=== PATIENT | male | born 1930 | race Caucasian/White ===

== ENCOUNTER 2017-04-19 11:51 | Inpatient (IN) | payer MEDICARE ==
[~2017-04-19] VITALS: Ht 180.3 cm; Wt 68.0 kg
--- NOTE | 2017-04-19 12:00 | NUR ---
sav from [employer]-- sdt syncopa episode. Pt is aao4. Unable to remember if he has syncopal episode. Pt appears in no apparent distress. Respiration even and unlabored. skin is warm to touch and non diaphoretic. afebrile. vss
--- NOTE | 2017-04-19 12:32 | NUR ---
ray at bedside
[2017-04-19 12:40] LABS: BASOPHILS % (AUTO) 0.7 % (0.0-2.0); EOSINOPHILS # (AUTO) 0.2 /CMM (0.0-0.7); EOSINOPHILS % (AUTO) 3.7 % (0.0-6.0); HEMATOCRIT 32 % (39-51); HEMOGLOBIN 10.5 g/dL (13.5-17.5); LYMPHOCYTES # (AUTO) 1.1 /CMM (0.8-4.8); LYMPHOCYTES % (AUTO) 16.4 % (20.0-44.0); MEAN CORPUSCULAR HEMOGLOBIN 30 PG (26.0-33.0); MEAN CORPUSCULAR HGB CONC 33 g/dl (31.0-36.0); MEAN CORPUSCULAR VOLUME 90 fL (80-96); MONOCYTES # (AUTO) 0.5 /CMM (0.1-1.30); MONOCYTES % (AUTO) 7.1 % (2.0-12.0); NEUTROPHILS # (AUTO) 4.7 /CMM (1.8-8.9); NEUTROPHILS % (AUTO) 72.1 % (43.0-81.0); PLATELET COUNT (AUTO) 147 /CMM (150-450); RDW COEFFICIENT OF VARIATION 13.8 (11.5-15.0); RED BLOOD CELL COUNT(AUTO) 3.53 MIL/uL (4.5-6.0); WHITE BLOOD COUNT (AUTO) 6.5 K/uL (4.3-11.0)
[2017-04-19 12:54] LABS: ALANINE AMINOTRANSFERASE 8 U/L (12-78); ALBUMIN 2.2 g/dL (3.4-5.0); ALKALINE PHOSPHATASE 57 U/L (46-116); ASPARTATE AMINOTRANSFERASE 15 U/L (15-37); BILIRUBIN,DIRECT 0.2 mg/dL (0.0-0.2); BILIRUBIN,TOTAL 0.6 mg/dL (0.2-1.0); CALCIUM, SERUM 6.2 mg/dL (8.5-10.1); CARBON DIOXIDE 22 mmol/L (21-32); CHLORIDE 117 mmol/L (98-107); GLUCOSE 78 mg/dL (74-106); SODIUM SERUM 147 mmol/L (136-145); TOTAL PROTEIN, SERUM 4.1 g/dL (6.4-8.2); UREA NITROGEN, BLOOD 9 mg/dL (7-18)
[2017-04-19 12:56] LABS: POTASSIUM 2.6 mmol/L (3.5-5.1); TROPONIN I < 0.017 ng/mL (0.00-0.056)
[2017-04-19 13:00] LABS: INR 1.21 (0.87-1.13); PROTHROMBIN TIME 12.7 SECS (9.5-12.7)
[2017-04-19] MEDS ORDERED: POTASSIUM CHLORIDE 20 MEQ TAB.PRT.SR PO ONE ×3 (13:00→13:17)
[2017-04-19] MEDS ORDERED: POTASSIUM CL. PREMIX PERIPHER. 100 ML ONE (13:06)
[2017-04-19] MEDS: POTASSIUM CL. PREMIX PERIPHER. 50 ML IV SCH ×6 (13:17→22:14)
--- NOTE | 2017-04-19 16:23 | NUR ---
REPORT GIVEN TO CAMILLE WEINBERG
--- NOTE | 2017-04-19 16:23 | NUR ---
PATIENT TRANSPORTED TO [address] [place] [address]
[2017-04-19] MEDS ORDERED: AMLO5TAB2 PO (16:34)
[2017-04-19] MEDS ORDERED: IV NS 0.9% 1,000 ML IV PRN (16:38)
[2017-04-19 17:00] VITALS: BP 130/60
[2017-04-19] MEDS ORDERED: ONDANSETRON HCL/PF 4 MG/2 ML VIAL IVP PRN (17:00)
[2017-04-19] MEDS ORDERED: ENOXAPARIN SODIUM 40 MG/0.4 ML DISP.SYRIN SQ SCH (17:00)
[2017-04-19] MEDS ORDERED: HYDROCODONE/APAP 5/325MG 1 EACH TABLET PO PRN (17:00)
[2017-04-19] MEDS ORDERED: MAG HYDROX/AL HYDROX/SIMETH 30 ML UDC PO PRN (17:00)
[2017-04-19] MEDS ORDERED: MAGNESIUM HYDROXIDE 30 ML UDC PO PRN (17:00)
[2017-04-19] MEDS ORDERED: ACETAMINOPHEN 325 MG TABLET PO PRN (17:00)
[2017-04-19] MEDS ORDERED: Z GUARD REMEDY 2 OZ OINT TP PRN (17:00)
[2017-04-19] MEDS ORDERED: ZOLPIDEM TARTRATE 5 MG TABLET PO PRN (17:00)
--- NOTE | 2017-04-19 17:00 | NUR ---
PHYSICAL EDUCATION DEPARTMENT CHAIR NOTES RECEIVED PATIENT FROM ER, NO APPARENT DISTRESS NOTED, DENIES PAIN, DENIES SOB. Addendum: 04/19/17 at 1901 by JAKE ALVA RN IV LINE ON RAC PATENT.
--- NOTE | 2017-04-19 17:10 | NUR ---
ADMIN ASSISTANT NOTES PATIENT A/OX4, VERBALLY RESPONSIVE, NO APPARENT DISTRESS NOTED, DENIES PAIN DENIES SOB. ALL NEEDS MET, KEPT CLEAN AND DRY, CALL LIGHT WITHIN REACH.
--- NOTE | 2017-04-19 19:00 | NUR ---
NECK SKEWER CLOSING NOTES PATIENT BED, NO APPARENT DISTRESS NOTED, DENIES PAIN ,DENIES SOB. SKIN ASSESSMENT DONE NOTED WITH MULTIPLE SKIN TEARS AND DISCOLORATIONS ON LEFT ARM., ALSO NOTED WITH DISCOLORATIONS ON RIGHT ARM. PHOTOS TAKEN FOR THE CHART AND WARPED LEFT ARM WITH KERLIX. ADMISSION ORDERS VERIFIED WITH DR BAUTISTA, PER MED OK TO GIVE 4 BAGS OF POTASSIUM.IV LINE PATENT INFUSING NS AT 100 MLS/HR. ALL DUE MEDS GIVEN, ALL NEEDS MET, KEPT CLEAN AND DRY. WILL ENDORSE CARE TO PM SHIFT.
--- NOTE | 2017-04-19 19:30 | NUR ---
STRAIGHTENING PRESS OPERATOR INITIAL NOTE RECEIVED PT AWAKE AND ALERT, ORIENTED X3, NO COMPLAINT OF PAIN OR RESPIRATORY DISTRESS NOTED DURING PHYSICAL ASSESSMENT, PT IS ABLE TO AMBULATE TO BATHROOM WITH SUPERVISION ONLY, STEADY GAIT NOTED, CURRENTLY RECEIVING POTASSIUM REPLACEMENT DUE TO 2.6 POTASSIUM LEVEL, WILL RE-CHECK LEVELS IN AM, SAFETY MEASURES WILL BE MAINTAINED AT ALL TIMES, NEEDS WILL BE ANTICIPATED AND ATTENDED TO PROMPTLY.
[2017-04-19 20:00] VITALS: BP 129/69
[2017-04-20] VITALS: BP 133/63
[2017-04-20 04:00] VITALS: BP 128/63
--- NOTE | 2017-04-20 06:32 | NUR ---
TURNER SPLITTER MACHINE OPERATOR CLOSING PT REMAINED STABLE DURING DIETETICS TEACHER, NO SIGNIFICANT CHANGE OF CONDITION NOTED, WILL ENDORSE TO AM SHIFT FOR TC.
[2017-04-20] MEDS ORDERED: PANTOPRAZOLE 40 MG TABLET.DR PO SCH (07:30)
--- NOTE | 2017-04-20 07:30 | NUR ---
TELE/RN NOTES PT. IS IN BED AWAKE, A&OX4. TELE MONITOR READING SINUS RHYTHM 62 BPM. NO SOB, BREATHING ON ROOM AIR UNLABORED. IV ACCESS ON RIGHT ANTECUBITAL LOCATION. IV FLUIDS NEAR BEDSIDE. LEFT FOREARM WRAPPED IN KERLIX GAUZE DUE TO MULTIPLE SKIN TEARS. ARM BED IS IN LOW POSITION, 2 SIDE RAILS UP, AND ALL NEEDS MET AT THIS TIME. CALL LIGHT WITHIN REACH. WILL CONTINUE TO ASSESS AND MONITOR.
[2017-04-20 08:00] VITALS: BP 140/81
[2017-04-20 08:57] VITALS: BP_SYST 136; BP_SYST 138; BP_SYST 141; BP_DIAS 70; BP_DIAS 71; BP_DIAS 84
--- NOTE | 2017-04-20 09:19 | NUR ---
TELE/RN NOTES PT. REPORTED LEFT FOREARM SWELLING FROM A A SPIDER BITE A MONTH AGO. NO SIGNS OF SWELLING ON LEFT FOREARM.
--- NOTE | 2017-04-20 10:34 | NUR ---
RN NOTES PT. SAID THAT HE CANNOT STAY HERE, AND WANTS TO LEAVE.
[2017-04-20 11:35] LABS: BASOPHILS % (AUTO) 0.5 % (0.0-2.0); EOSINOPHILS # (AUTO) 0.2 /CMM (0.0-0.7); EOSINOPHILS % (AUTO) 2.8 % (0.0-6.0); HEMATOCRIT 43 % (39-51); HEMOGLOBIN 14.3 g/dL (13.5-17.5); LYMPHOCYTES # (AUTO) 1.9 /CMM (0.8-4.8); LYMPHOCYTES % (AUTO) 25.1 % (20.0-44.0); MEAN CORPUSCULAR HEMOGLOBIN 30 PG (26.0-33.0); MEAN CORPUSCULAR HGB CONC 33 g/dl (31.0-36.0); MEAN CORPUSCULAR VOLUME 90 fL (80-96); MONOCYTES # (AUTO) 0.5 /CMM (0.1-1.30); MONOCYTES % (AUTO) 6.4 % (2.0-12.0); NEUTROPHILS % (AUTO) 65.2 % (43.0-81.0); PLATELET COUNT (AUTO) 208 /CMM (150-450); RDW COEFFICIENT OF VARIATION 15.6 (11.5-15.0); RED BLOOD CELL COUNT(AUTO) 4.75 MIL/uL (4.5-6.0); WHITE BLOOD COUNT (AUTO) 7.6 K/uL (4.3-11.0)
[2017-04-20 11:59] LABS: ALANINE AMINOTRANSFERASE 19 U/L (12-78); ALBUMIN 3.4 g/dL (3.4-5.0); ALKALINE PHOSPHATASE 94 U/L (46-116); ASPARTATE AMINOTRANSFERASE 20 U/L (15-37); BILIRUBIN,TOTAL 0.9 mg/dL (0.2-1.0); CALCIUM, SERUM 8.9 mg/dL (8.5-10.1); CARBON DIOXIDE 33 mmol/L (21-32); CHLORIDE 105 mmol/L (98-107); CREATININE 1.2 mg/dL (0.6-1.3); GLUCOSE 97 mg/dL (74-106); MAGNESIUM 1.8 mg/dL (1.8-2.4); PHOSPHORUS 2.4 mg/dL (2.5-4.9); POTASSIUM 4.4 mmol/L (3.5-5.1); SODIUM SERUM 141 mmol/L (136-145); TOTAL PROTEIN, SERUM 6.4 g/dL (6.4-8.2); UREA NITROGEN, BLOOD 11 mg/dL (7-18)
[2017-04-20 12:00] VITALS: BP 134/71
[2017-04-20 12:09] LABS: CHOLESTEROL 132 mg/dL (<200); HDL CHOLESTEROL 50 mg/dL (40-60); LDL 71 mg/dL (0-99); THYROID STIMULATING HORMONE 1.521 uIU/mL (0.358-3.74); TRIGLYCERIDES 82 mg/dL (30-150)
[2017-04-20 14:48] LABS: APPEARANCE,URINE CLEAR (CLEAR); BILIRUBIN,URINE NEGATIVE (NEGATIVE); BLOOD, URINE NEGATIVE Ery/uL (NEGATIVE); COLOR,URINE YELLOW (YELLOW); KETONES,URINE NEGATIVE (NEGATIVE); LEUKOCYTE ESTERASE ,URINE NEGATIVE (NEGATIVE); NITRITE, URINE NEGATIVE (NEGATIVE); PROTEIN,URINE NEGATIVE (NEGATIVE); UGLUCOSE NEGATIVE (NEGATIVE); UROBILINOGEN,URINE 0.2 EU/dL (0.2)
[2017-04-20] MEDS ORDERED: K PHOS NEUTRAL 250 MG TABLET PO ONE (16:00)
--- NOTE | 2017-04-20 16:00 | NUR ---
RN NOTES DISCHARGE PT. WAS DISCHARGED HOME WITH SELF-CARE AT HOME VIA [facility] IN MEDICALLY STABLE CONDITION. PT. WAS PROVIDED DISCHARGE INSTRUCTIONS, AND SIGNED AND VERBALIZED UNDERSTANDING. BELONGINGS LIST CHECKED, AND SIGNED. ID BAND, AND IV WAS REMOVED WITHOUT COMPLICATIONS.
== END 2017-04-20 16:23 | disposition home or self-care (01) | DRG 73 ==
LOC: ER 11:53 → MED 16:17 → TELE 17:00
PROVIDERS: ADMIT Internal Medicine; ATTEND Internal Medicine
DX: G90.8 Other disorders of autonomic nervous system (principal); G93.40 Encephalopathy, unspecified; E78.5 Hyperlipidemia, unspecified; E87.6 Hypokalemia; I10 Essential (primary) hypertension; S61.412A Laceration without foreign body of left hand, initial encounter; X58.XXXA Exposure to other specified factors, initial encounter; Y93.9 Activity, unspecified; Y92.89 Other specified places as the place of occurrence of the external cause; Y99.9 Unspecified external cause status
CPT/HCPCS: 36415; 70450-TC; 80048-TC; 80053-TC; 80061-TC; 80076-TC; 80305; 81000-TC; 83735-TC; 84100-TC; 84443-TC; 84484-TC; 85025-TC; 85730-TC; 87081-TC; 97001-TC; A4606; A6402; J1650; J3480; J7030; Z7610

== ENCOUNTER 2019-09-14 10:36 | Emergency (ER) | payer MEDICARE, OTHER ==
[~2019-09-14] VITALS: Ht 180.3 cm; Wt 63.5 kg
[~2019-09-14 10:36] MED LIST: AMLO5TAB9 PO
--- NOTE | 2019-09-14 10:50 | NUR ---
BIB SELF C/O ABDOMINAL PAIN AND VOMITING X1 STARTED 5AM THIS MORNING, TO ER BED 9, HOOKED TO MONITOR, CHANGED TO HOSP GOWN, PROVIDED W ARM BLANKET, AOx4, BREATHING EVEN AND UNLABORED, DR DUMAS AT BEDSIDE
[2019-09-14 11:10] LABS: BASOPHILS # (AUTO) 0.1 /CMM (0.0-0.2); BASOPHILS % (AUTO) 0.5 % (0.0-2.0); EOSINOPHILS % (AUTO) 0.1 % (0.0-6.0); HEMATOCRIT 37 % (39-51); HEMOGLOBIN 12.4 g/dL (13.5-17.5); LYMPHOCYTES # (AUTO) 0.9 /CMM (0.8-4.8); LYMPHOCYTES % (AUTO) 7.9 % (20.0-44.0); MEAN CORPUSCULAR HGB CONC 33 g/dl (31.0-36.0); MEAN CORPUSCULAR VOLUME 88 fL (80-96); MONOCYTES # (AUTO) 0.3 /CMM (0.1-1.30); NEUTROPHILS # (AUTO) 9.8 /CMM (1.8-8.9); NEUTROPHILS % (AUTO) 88.5 % (43.0-81.0); PLATELET COUNT (AUTO) 256 /CMM (150-450); RED BLOOD CELL COUNT(AUTO) 4.26 MIL/uL (4.5-6.0); WHITE BLOOD COUNT (AUTO) 11.1 K/uL (4.3-11.0)
[2019-09-14] MEDS ORDERED: ATOR10TA PO (11:12)
[2019-09-14 11:17] LABS: CARBON DIOXIDE 27 mmol/L (21-32); CHLORIDE 104 mmol/L (98-107); CREATININE 1.2 mg/dL (0.6-1.3); GLUCOSE 147 mg/dL (74-106); POTASSIUM 3.7 mmol/L (3.5-5.1); SODIUM SERUM 141 mmol/L (136-145); UREA NITROGEN, BLOOD 12 mg/dL (7-18)
[2019-09-14 11:22] LABS: ALANINE AMINOTRANSFERASE 17 U/L (12-78); ALBUMIN 3.5 g/dL (3.4-5.0); ALKALINE PHOSPHATASE 164 U/L (46-116); ASPARTATE AMINOTRANSFERASE 18 U/L (15-37); BILIRUBIN,DIRECT 0.1 mg/dL (0.0-0.2); BILIRUBIN,TOTAL 0.5 mg/dL (0.2-1.0); LIPASE 123 U/L (73-393); TOTAL PROTEIN, SERUM 7.1 g/dL (6.4-8.2)
--- NOTE | 2019-09-14 11:32 | NUR ---
WHEELED OUT VIA [facility] FOR CT SCAN.
[2019-09-14 12:51] VITALS: BP 124/81
--- NOTE | 2019-09-14 12:51 | NUR ---
IV removed. Catheter intact and site benign. Pressure and 4x4 applied to site. No bleeding noted.Patient discharged to home in stable condition. Written and verbal after care instructions given. Patient verbalizes understanding of instruction.
== END 2019-09-14 12:52 | disposition home or self-care (01) ==
LOC: ER 10:37
DX: K80.20 Calculus of gallbladder without cholecystitis without obstruction (principal); I10 Essential (primary) hypertension; Z88.0 Allergy status to penicillin; Z60.2 Problems related to living alone; Z79.899 Other long term (current) drug therapy; Z85.46 Personal history of malignant neoplasm of prostate
CPT/HCPCS: 36415; 71045-TC; 80048-TC; 80076-TC; 83690-TC; 84484-TC; 85025-TC